=== PATIENT | female | born 1960 | race Caucasian/White ===

== ENCOUNTER 2017-03-23 08:08 | Day surgery (SDC) | payer OTHER ==
[~2017-03-23] VITALS: Ht 162.6 cm; Wt 93.6 kg
[2017-03-23] MEDS ORDERED: SODIUM CHLORIDE 0.9% 1,000 ML IV SCH (08:45)
[2017-03-23 08:47] VITALS: BP 146/92
[2017-03-23] MEDS ORDERED: LIDOCAINE 1%, 20ML ONE (10:05)
[2017-03-23 11:39] LABS: GLUCOSE, CSF 56 mg/dL (40-80); TOTAL PROTEIN,CSF 35 mg/dL (15-45)
== END 2017-03-23 13:45 ==
LOC: OUT 08:08
PROVIDERS: ATTEND Radiology Diagnostic Radiology
DX: G45.9 Transient cerebral ischemic attack, unspecified (principal)
CPT/HCPCS: 36415; 62270; 82040; 82042; 82164; 82784; 82945; 83873; 84157; 86255; 86316; 86592; 86645; 86695; 86696; 86762; 86777; 86778; 87070; 87102; 87116; 87205; 87206; 87476; 87496; 87529; 87798; 87899; 88108; 89051; J3490; J7030

== ENCOUNTER → 2017-09-04 | Outpatient (CLI) | payer OTHER ==
[~2017-09-04] MED LIST: REGADENOSON 0.4 MG/5 ML SYRINGE ONE
== END | disposition home or self-care (01) ==
LOC: CFH 12:48
PROVIDERS: ATTEND Internal Medicine Cardiovascular Disease
DX: R06.02 Shortness of breath (principal)
CPT/HCPCS: 78452; 93017; 93306; A9502; J2785

== ENCOUNTER → 2017-10-21 | Outpatient (CLI) | payer OTHER | END | disposition home or self-care (01) | LOC: CFH 11:05 | PROVIDERS: ATTEND Internal Medicine | DX: Z12.31 Encounter for screening mammogram for malignant neoplasm of breast (principal); M16.11 Unilateral primary osteoarthritis, right hip; E04.2 Nontoxic multinodular goiter | CPT/HCPCS: 76536; 77063; 77067 ==

== ENCOUNTER → 2017-11-12 | Outpatient (CLI) | payer OTHER | END | disposition home or self-care (01) | LOC: RAD 12:54 | PROVIDERS: ATTEND Internal Medicine | DX: E04.1 Nontoxic single thyroid nodule (principal) | CPT/HCPCS: 76942; 88173 ==